=== PATIENT | female | born 1980 | race Caucasian/White ===

== ENCOUNTER 2022-06-18 08:51 | Emergency (ER) | payer MEDICAID ==
[2022-06-18] MEDS ORDERED: Sodium Chloride 0.9% 10 ML Syringe FLUSH PRN (09:32)
[2022-06-18] MEDS ORDERED: Sodium Chloride 0.9% 1,000 ML IV SCH (09:45)
[2022-06-18] MEDS ORDERED: Sodium Chloride 0.9% 10 ML Syringe FLUSH ONE (09:54)
[2022-06-18] MEDS ORDERED: Iopamidol 755 Mg/ML 100 ML Bottle IV SCH (10:00)
[2022-06-18] MEDS ORDERED: Sodium Chloride 0.9% 50 ML IV SCH (10:00)
[2022-06-18] MEDS ORDERED: Iopamidol 612 MG/ML 150 ML Bottle IV SCH (10:00)
[2022-06-18 10:10] LABS: ESTIMATED GFR 81 mL/min (>60); TROPONIN I HIGH SENSITIVITY 6.1 pg/mL (<=60.3)
== END 2022-06-18 13:21 | disposition home or self-care (01) ==
LOC: JP.ED 08:51
DX: R20.0 Anesthesia of skin (principal); R20.2 Paresthesia of skin; F17.210 Nicotine dependence, cigarettes, uncomplicated; Z88.0 Allergy status to penicillin
CPT/HCPCS: 36415; 70450; 70496; 70498; 80053; 83605; 84484; 85025; 93005; 96360; 96361; 99284; J3490; J7030; Q9967